=== PATIENT | male | born 1985 | race Hispanic/Latino ===

== ENCOUNTER 2023-11-18 16:35 | Emergency (ER) | payer SELFPAY ==
[~2023-11-18] VITALS: Ht 170.2 cm; Wt 97.0 kg
[2023-11-18] MEDS ORDERED: KETOROLAC TROMETHAMINE 30 MG/ML SDV IV ONE (17:05)
[2023-11-18] MEDS ORDERED: SODIUM CHLORIDE 0.9% 1,000 ML IV ONE ×3 (17:05)
[2023-11-18 17:30] VITALS: BP 146/87
[2023-11-18 17:31] LABS: BASO% 0.3 % (0-3); EOS% 0.2 % (0-8); HEMATOCRIT 43.3 % (39.0-50.0); HEMOGLOBIN 14.9 g/dl (14.0-18.0); IMMATURE GRANULOCYTES 0.3 % (0.0-5.0); LYMPH% 8.6 % (15-41); MEAN CORPUSCULAR HGB 31.3 pG CALC (26.0-32.0); MEAN CORPUSCULAR HGB CONC 34.4 g/dL CAL (32.0-36.0); MONO% 6.9 % (2-13); NEUT# 9.4 thou/uL (1.82-7.42); NEUT% 83.7 % (42-76); RED BLOOD COUNT 4.76 mill/uL (4.70-6.10); RED CELL DISTRI WIDTH 11.4 % (11.5-15.5)
[2023-11-18 17:33] LABS: URINE BLOOD DIPSTICK Small (NEGATIVE); URINE GLUCOSE - DIPSTICK Negative (NEGATIVE); URINE KETONE 15 mg/dL (NEGATIVE); URINE LEUK ESTERASE Negative (NEGATIVE); URINE NITRITE - DIPSTICK Negative (Negative); URINE PH 6.5 (4.5-8.0); URINE PROTEIN - DIPSTICK 100 mg/dL (NEG-TRACE); URINE SPECIFIC GRAVITY 1.025
[2023-11-18 17:34] LABS: URINE COLOR Dark yellow
[2023-11-18 17:41] LABS: URINE WBC 0-2 WBC/hpf (0-5)
[2023-11-18 17:43] LABS: URINE HYALINE CAST FEW lpf (NONE-RARE); URINE MUCUS MODERATE hpf (NONE-FEW)
[2023-11-18 17:43] LABS: ALBUMIN 4.2 g/dL (3.2-5.0); CREATININE 1.2 mg/dL (0.7-1.3); POTASSIUM 4.1 mmol/l (3.5-5.1); TOTAL PROTEIN 7.4 g/dL (6.3-8.2)
[2023-11-18 18:01] VITALS: BP 138/83
[2023-11-18 18:30] VITALS: BP 140/86
[2023-11-18 19:00] VITALS: BP 146/84
[2023-11-18] MEDS ORDERED: KEFLEX500 MG PO (19:14)
[2023-11-18 19:30] VITALS: BP 143/79
[2023-11-18 20:03] VITALS: BP 143/79
== END 2023-11-18 20:03 | disposition home or self-care (01) | DRG 864 ==
LOC: ED 16:35
PROVIDERS: Nurse Practitioner
DX: R50.9 Fever, unspecified (principal)